=== PATIENT | male | born 1970 | race Two or more races ===

== ENCOUNTER 2023-12-18 18:37 | Emergency (ER) | payer MEDICAID, OTHER ==
[~2023-12-18] VITALS: Ht 172.7 cm; Wt 100.2 kg
[2023-12-18] MEDS ORDERED: AUG875T PO (20:29)
[2023-12-18] MEDS ORDERED: IBUP-1456 PO (20:29)
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
[2023-12-18] MEDS: TETANUS-DIPTH-ACEL PERTUSSIS 0.5ML SYR Tdap IM ONE (20:57)
[2023-12-18 21:05] VITALS: BP 126/78; PULSE 94; RESP 18; TEMP 98.4; O2SAT 96
== END 2023-12-18 21:06 | disposition home or self-care (01) ==
LOC: ER 18:37
DX: S61.254A Open bite of right ring finger without damage to nail, initial encounter (principal); Y04.1XXA Assault by human bite, initial encounter; Y93.89 Activity, other specified; Y92.89 Other specified places as the place of occurrence of the external cause; Y99.8 Other external cause status
CPT/HCPCS: 90471; 90715

== ENCOUNTER 2023-12-26 05:33 | Inpatient (IN) | payer MEDICAID ==
[~2023-12-26] VITALS: Ht 172.7 cm; Wt 101.1 kg
[~2023-12-26 05:33] MED LIST: AUG875T PO; IBUP-1456 PO
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
[2023-12-26 06:28] LABS: Basophils # (auto) 0 10 ^3/uL (0-0.2); Basophils % (auto) 0.2 % (0.0-2.0); Eosinophils # (auto) 0 10 ^3/uL (0-0.8); Eosinophils % (auto) 0.3 % (0.0-7.0); Hematocrit 45.9 % (41.0-53.0); Hemoglobin 15.5 g/dL (13.5-17.5); Lymphocytes # (auto) 1.2 10 ^3/uL (0.4-5.4); Lymphocytes % (auto) 10.6 % (10.0-50.0); Mean Corpuscular Hemoglobin 28.3 pg (28.0-32.0); Mean Corpuscular Hgb Conc. 33.7 g/dL (32.0-36.0); Monocytes # (auto) 0.3 10 ^3/uL (0-1.3); Monocytes % (auto) 2.5 % (0.0-12.0); Neutrophils # (auto) 9.5 10 ^3/uL (1.6-8.6); Neutrophils % (auto) 86.4 % (37.0-80.0); Platelet Count (auto) 275 10^3/uL (140-450); Red Blood Cells 5.46 10^6/uL (4.5-5.90); Red Cell Distribution Width 13.3 % (11.8-14.3); White Blood Cell 11.1 10^3/uL (4.4-10.8)
[2023-12-26] MEDS: ONDANSETRON HCL 4 MG/2 ML VIAL IV ONE (06:40)
[2023-12-26] MEDS: MORPHINE SULFATE 4 MG/ML SYR/VIAL IV ONE ×2 (06:40→09:30)
[2023-12-26 06:50] LABS: Alanine Aminotransferase 27 U/L (7-40); Albumin 4.8 g/dL (3.2-4.8); Alkaline Phosphatase 83 U/L (46-116); Anion Gap 6 (5-15); Aspartate Aminotransferase 11 U/L (13-40); BUN/Creatinine Ratio 12.5 (10.0-20.0); Bilirubin, Total 0.9 mg/dL (0.2-1.0); Blood Urea Nitrogen 14 mg/dL (9-23); Calcium 10.3 mg/dL (8.7-10.4); Carbon Dioxide 30 mmol/L (20-31); Chloride 105 mmol/L (98-107); Glucose 178 mg/dL (74-106); Lipase 60 U/L (12-53); Potassium 3.6 mmol/L (3.5-5.1); Sodium 141 mmol/L (136-145); Total Protein 7.6 g/dL (5.7-8.2)
[2023-12-26] MEDS: SODIUM CHLORIDE 0.9% 500 ML IVB ONE (06:55)
--- NOTE | 2023-12-26 07:14 | DVH ---
CLINICAL INFORMATION: 53 years old, Male; right sided pain. TECHNIQUE: Axial CT images of the abdomen and pelvis were obtained without IV contrast. Coronal and sagittal reformatted images were obtained, reviewed, and stored. Evaluation of the parenchymal organs is limited without IV contrast. Evaluation of the bowel and mesentery is limited without oral contra st. All CT scans at this medical facility are performed using dose modulation techniques as appropria te to a performed exam including the following: Automated exposure control was utilized; adjustment o f the MA and/or KV according to patient size; and use of iterative reconstruction technique. CTDIvol = 23.13 mGy DLP = 1546.95 mGy-cm COMPARISON: None FINDINGS: Lung bases: Atelectasis in the lung bases. Respiratory motion artifact limits evaluation. Liver: Grossly unremarkable in its noncontrast enhanced appearance. No abnormal density or focal les ion identified. Biliary: Densities within the gallbladder, likely sludge and/ or gallstones. Gallbladder is distended , measuring up to 12.5 x 5.0 cm. Spleen: Unremarkable. Pancreas: Grossly unremarkable in its noncontrast enhanced appearance. Adrenal glands: Unremarkable. No mass. Kidneys: No hydronephrosis. No renal or ureteral calculi. Aorta/Vascular: Scattered atherosclerotic calcification. No abdominal aortic aneurysm. Retroperitoneum: No mass or lymphadenopathy. Bowel/mesentery: Nonspecific nondilated fluid-filled small bowel loops. No small bowel obstruction. A ppendix is visualized and appears unremarkable. Scattered small colonic diverticula without adjacent inflammatory changes to suggest diverticulitis. Pelvic organs: Enlarged prostate with mild impression on the bladder base. Bladder: Unremarkable. No mass. Abdominal wall: Small fat containing left inguinal hernia. Bones: No acute fracture or suspicious intraosseous lesion. IMPRESSION: 1. Nonspecific nondilated fluid-filled small bowel loops. Findings may be seen with ileus or enterit is in the appropriate clinical setting. No small bowel obstruction. 2. Distended gallbladder with likely sludge and/ or gallstones. Correlate with clinical findings. U ltrasound could be obtained to further evaluate if clinically indicated. 3. Small left indirect fat containing inguinal hernia. 4. Additional nonacute findings as detailed above.
[2023-12-26 07:26] VITALS: PULSE 59; RESP 14; O2SAT 96
[2023-12-26 07:52] LABS: Urine Bacteria None Seen /hpf (None Seen)
[2023-12-26 08:00] LABS: Urine Blood Negative /uL (Negative); Urine Clarity Clear (Clear); Urine Color Yellow (Yellow); Urine Mucus FEW (None Seen); Urine Protein, UAD 1+ (Negative); Urine Specific Gravity 1.026 (1.001-1.035); Urine Urobilinogen Normal (Negative); Urine WBC 1 /hpf (0 - 3); Urine pH 6.5 (5.0-9.0)
[2023-12-26] MEDS: PROCHLORPERAZINE EDISYLATE 5 MG/ML 2ML VIAL IV ONE (09:27)
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
[2023-12-26] MEDS ORDERED: SODIUM CHLORIDE 0.9% 1,000 ML IV SCH (10:15)
[2023-12-26] MEDS ORDERED: ACETAMINOPHEN 325 MG TAB PO PRN ×2 (10:15→10:30)
[2023-12-26] MEDS ORDERED: MORPHINE SULFATE INJ 2 MG/ml SYRG IV PRN (10:15)
[2023-12-26] MEDS ORDERED: ONDANSETRON HCL 4 MG/2 ML VIAL IV PRN (10:15)
[2023-12-26] MEDS ORDERED: HYDROcodone-ACET 5/325MG TAB PO PRN ×2 (10:15→10:30)
[2023-12-26] MEDS: SODIUM CHLORIDE 0.9% 1,000 ML IV SCH (10:30)
--- NOTE | 2023-12-26 10:51 | DVH ---
INDICATION: Right upper quadrant pain, rule out cholecystitis TECHNIQUE: Multiple real-time sonographic images were obtained of the right upper quadrant. COMPARISON: None FINDINGS: The liver demonstrates heterogeneous echotexture without focal mass lesions. The liver bhavna sures 15.8 cm. There is no intrahepatic or extrahepatic ductal dilatation. The common duct measures 0.6 cm. Cholelithiasis is noted. The gallbladder wall measures 0.2 cm and is within normal limits. The right kidney measures 10.9 cm. The right kidney is normal in contour, size, and shape. The echo genicity is normal. There is no hydronephrosis. The pancreas is not well visualized due to overlying bowel gas. IMPRESSION: 1. Cholelithiasis without evidence of cholecystitis 2. Hepatic steatosis.
[2023-12-26] MEDS: ONDANSETRON HCL 4 MG/2 ML VIAL IV PRN (17:06)
[2023-12-26] MEDS: MORPHINE SULFATE INJ 2 MG/ml SYRG IV PRN (17:07)
[2023-12-26 18:19] VITALS: RESP 16
[2023-12-26 18:23] VITALS: BP 145/89; PULSE 67; RESP 16; TEMP 98.5; O2SAT 94
[2023-12-26 21:00] VITALS: BP 133/72; PULSE 61; RESP 19; TEMP 98.4; O2SAT 96
[2023-12-27 01:00] VITALS: BP 138/74; PULSE 63; RESP 19; TEMP 98.6; O2SAT 93
[2023-12-27 05:00] VITALS: BP 151/83; PULSE 68; RESP 20; TEMP 98.3; O2SAT 93
[2023-12-27 05:47] LABS: Basophils # (auto) 0 10 ^3/uL (0-0.2); Basophils % (auto) 0.3 % (0.0-2.0); Eosinophils # (auto) 0.1 10 ^3/uL (0-0.8); Eosinophils % (auto) 1.1 % (0.0-7.0); Hematocrit 41.6 % (41.0-53.0); Hemoglobin 14.4 g/dL (13.5-17.5); Lymphocytes # (auto) 1.3 10 ^3/uL (0.4-5.4); Lymphocytes % (auto) 13.2 % (10.0-50.0); Mean Corpuscular Hemoglobin 29.2 pg (28.0-32.0); Mean Corpuscular Hgb Conc. 34.6 g/dL (32.0-36.0); Mean Corpuscular Volume 84.5 fL (80.0-100.0); Monocytes # (auto) 0.7 10 ^3/uL (0-1.3); Monocytes % (auto) 7.2 % (0.0-12.0); Neutrophils # (auto) 7.9 10 ^3/uL (1.6-8.6); Neutrophils % (auto) 78.2 % (37.0-80.0); Platelet Count (auto) 235 10^3/uL (140-450); Red Blood Cells 4.92 10^6/uL (4.5-5.90); Red Cell Distribution Width 13.1 % (11.8-14.3); White Blood Cell 10.1 10^3/uL (4.4-10.8)
[2023-12-27 06:08] LABS: Alanine Aminotransferase 22 U/L (7-40); Alkaline Phosphatase 72 U/L (46-116); Anion Gap 9 (5-15); BUN/Creatinine Ratio 10.2 (10.0-20.0); Blood Urea Nitrogen 9 mg/dL (9-23); Carbon Dioxide 25 mmol/L (20-31); Chloride 108 mmol/L (98-107); Glucose 124 mg/dL (74-106); Potassium 3.7 mmol/L (3.5-5.1); Sodium 142 mmol/L (136-145)
[2023-12-27 06:09] LABS: Aspartate Aminotransferase 9 U/L (13-40); Bilirubin, Total 1.7 mg/dL (0.2-1.0); Total Protein 6.6 g/dL (5.7-8.2)
[2023-12-27 09:03] VITALS: BP_SYST 150; BP_SYST 157; BP_DIAS 103; BP_DIAS 78; PULSE 94; PULSE 95; RESP 17; RESP 19; TEMP 99.1; O2SAT 93; O2SAT 95
--- NOTE | 2023-12-27 11:05 | DVHPN2 ---
Eyes: No Pain, No Vision change, No Conjunctivae inflammation, No Eyelid inflammation, No Other, No Redness ENT: No Ear pain, No Ear discharge, No Nose pain, No Nose discharge, No Nose congestion, No Mouth pain, No Mouth swelling, No Throat pain, No Throat swelling, No Other Cardiovascular: No Chest Pain, No Palpitations, No Orthopnea, No Paroxysmal Noc. Dyspnea, No Edema, No Lt Headedness, No Other Respiratory: No Cough, No Dry, No Shortness of breath, No SOB with excertion, No Wheezing, No Hemoptysis, No Pleuritic Pain, No Sputum, No Other Gastrointestinal: Nausea, Vomiting, Abdominal Pain; No Diarrhea, No Constipation, No Melena, No Hematochezia, No Other Genitourinary: No Dysuria, No Frequency, No Incontinence, No Hematuria, No Retention, No Other Musculoskeletal: No other, No neck pain, No shoulder pain, No arm pain, No back pain, No hand pain, No leg pain, No foot pain Skin: No Rash, No Lesions, No Jaundice, No Bruising, No Other Objective Vitals Vital Signs Date Time Temp Pulse Resp B/P (MAP) Pulse Ox O2 Delivery O2 Flow Rate FiO2 12/27/23 09:03 99.1 94 17 157/78 (104) 95 99.1 12/27/23 08:00 Room Air* 0 21 Intake/Output Intake and Output 12/27/23 07:00 Intake Total 500 ml Balance 500 ml Intake Oral 0 ml IV Total 500 ml # Voids 2 # Bowel Movements 1 Medications Current Medications Medications Dose Ordered Sig/[place] Route Start Time Stop Time Status Last Admin Dose Admin Ondansetron HCl 4 mg Q4HP PRN IV 12/26/23 10:30 12/26/23 17:06 4 MG Morphine Sulfate 2 mg Q4HPRN PRN IV 12/26/23 10:30 12/27/23 08:50 2 MG Sodium Chloride 1,000 ml @ 100 mls/hr Q10H IV 12/26/23 10:30 12/27/23 00:58 100 MLS/HR Acetaminophen/ Hydrocodone Bitart 1 tab Q4HP PRN PO 12/26/23 10:30 Acetaminophen 650 mg Q6HP PRN PO 12/26/23 10:30 Laboratory Results Laboratory Tests 12/27/23 05:14 Chemistry Test 12/27/23 05:14 Albumin 4.0 g/dL (3.2-4.8) Calcium Level 9.0 mg/dL (8.7-10.4) Total Protein 6.6 g/dL (5.7-8.2) LFT Test 12/27/23 05:14 Alanine Aminotransferase (ALT) 22 U/L (7-40) Alkaline Phosphatase 72 U/L (46-116) Aspartate Amino Transferase (AST) 9 U/L (13-40) L Total Bilirubin 1.7 mg/dL (0.2-1.0) H Urinalysis Test 12/26/23 07:51 Urine Color Yellow (Yellow) Urine Clarity Clear (Clear) Urine pH 6.5 (5.0-9.0) Urine Specific [place] 1.026 (1.001-1.035) Urine Protein 1+ (Negative) H Urine Ketones Negative (Negative) Urine Blood Negative /uL (Negative) Urine Nitrite Negative (Negative) Urine Bilirubin Negative (Negative) Urine Urobilinogen Normal mg/dL (Negative) Urine Leukocyte Esterase Negative /uL (Negative) Urine RBC <1 /hpf (0 - 3) Urine WBC 1 /hpf (0 - 3) Urine Squamous Epithelial Cells None seen /hpf (<5) Urine Bacteria None seen /hpf (None Seen) Urine Mucus Few (None Seen) Urine Glucose 1+ mg/dL (Normal) ORQUIDEA HARLEY MD Dec 27, 2023 11:05
--- NOTE | 2023-12-27 11:48 | DVHDS2 ---
Discharge Summary Date of Admission Dec 26, 2023 at 10:06 Date of Discharge: Dec 27, 2023 Admitting Diagnosis # acute abdominal pain # rule out cholecystitis # elevated lipase # nausea and vomiting Labs/Diagnostic Data: Laboratory Results Test 12/27/23 05:14 12/26/23 07:51 12/26/23 06:13 White Blood Count 10.1 10^3/uL (4.4-10.8) Red Blood Count 4.92 10^6/uL (4.5-5.90) Hemoglobin 14.4 g/dL (13.5-17.5) Hematocrit 41.6 % (41.0-53.0) Mean Corpuscular Volume 84.5 fL (80.0-100.0) Mean Corpuscular Hemoglobin 29.2 pg (28.0-32.0) Mean Corpuscular Hemoglobin Concent 34.6 g/dL (32.0-36.0) Red Cell Distribution Width 13.1 % (11.8-14.3) Platelet Count 235 10^3/uL (140-450) Mean Platelet Volume 9.2 fL (6.9-10.8) Neutrophils (%) (Auto) 78.2 % (37.0-80.0) Lymphocytes (%) (Auto) 13.2 % (10.0-50.0) Monocytes (%) (Auto) 7.2 % (0.0-12.0) Eosinophils (%) (Auto) 1.1 % (0.0-7.0) Basophils (%) (Auto) 0.3 % (0.0-2.0) Neutrophils # (Auto) 7.9 10 ^3/uL (1.6-8.6) Lymphocytes # (Auto) 1.3 10 ^3/uL (0.4-5.4) Monocytes # (Auto) 0.7 10 ^3/uL (0-1.3) Eosinophils # (Auto) 0.1 10 ^3/uL (0-0.8) Basophils # (Auto) 0 10 ^3/uL (0-0.2) Nucleated Red Blood Cells 0.0 % Sodium Level 142 mmol/L (136-145) Potassium Level 3.7 mmol/L (3.5-5.1) Chloride Level 108 mmol/L (98-107) Carbon Dioxide Level 25 mmol/L (20-31) Anion Gap 9 (5-15) Blood Urea Nitrogen 9 mg/dL (9-23) Creatinine 0.88 mg/dL (0.700-1.30) Glomerular Filtration Rate Calc 103 mL/min (>90) BUN/Creatinine Ratio 10.2 (10.0-20.0) Serum Glucose 124 mg/dL (74-106) Calcium Level 9.0 mg/dL (8.7-10.4) Total Bilirubin 1.7 mg/dL (0.2-1.0) Aspartate Amino Transferase (AST) 9 U/L (13-40) Alanine Aminotransferase (ALT) 22 U/L (7-40) Alkaline Phosphatase 72 U/L (46-116) Total Protein 6.6 g/dL (5.7-8.2) Albumin 4.0 g/dL (3.2-4.8) Urine Color Yellow (Yellow) Urine Clarity Clear (Clear) Urine pH 6.5 (5.0-9.0) Urine Specific [place] 1.026 (1.001-1.035) Urine Protein 1+ (Negative) Urine Ketones Negative (Negative) Urine Blood Negative /uL (Negative) Urine Nitrite Negative (Negative) Urine Bilirubin Negative (Negative) Urine Urobilinogen Normal mg/dL (Negative) Urine Leukocyte Esterase Negative /uL (Negative) Urine RBC <1 /hpf (0 - 3) Urine WBC 1 /hpf (0 - 3) Urine Squamous Epithelial Cells None seen /hpf (<5) Urine Bacteria None seen /hpf (None Seen) Urine Mucus Few (None Seen) Urine Glucose 1+ mg/dL (Normal) Lipase 60 U/L (12-53) Other Laboratory Tests 12/27/23 05:14 Brief Hx & Hospital Course: This is a 53 years old male with past medical history of abdominal surgery came to emergency department because of abdominal pain. The patient reported of right upper quadrant abdominal pain associated with nausea and vomiting. No fever, chill, shortness for breath, chest pain, diarrhea or constipation. The patient was admitted. CT scan abdomen and pelvis showed: Nonspecific nondilated fluid-filled small bowel loops. Findings may be seen with ileus or enteritis in the appropriate clinical setting. No small bowel obstruction. Distended gallbladder with likely sludge and/ or gallstones. Correlate with clinical findings. Ultrasound could be obtained to further evaluate if clinically indicated. Small left indirect fat containing inguinal hernia. The patient ultrasound showed cholelithiasis but no acute cholecystitis. No common bile duct dilation. The patient also had mild elevation of lipase but tolerated food well. So I am going to discharge the patient home today. Advised the patient to follow up with primary care physician 1-2 weeks. Advised the patient if he continuing to have pain then have an outpatient surgery evaluation. Activity as tolerated. Diet per home diet. Physical exam: HEENT: Normocephalic atraumatic pupils equal react to light and accommodation. Extraocular muscles intact, conjunctiva pink, oropharynx moist, no thrush, no exudate. Lymphatic: No lymphadenopathy Cardiovascular exam: S1, S2 was heard. No murmurs, rubs, gallops Lung: Clear on auscultation bilaterally, no wheeze, rale, rhonchi. GI: Abdominal soft, nondistended, nontenderness, positive bowel sounds. Extremity: No crepitus, cyanosis, edema. Pedal pulses present bilateral. Full range of motion. Skin: Normal turgor, no rash. Psych: Alert, oriented x3. Neurology: No focal deficits, cranial nerve II to XII grossly intact. Condition at Discharge: Stable Final Diagnosis/Problems List # acute abdominal pain # cholelithiasis without cholecystitis # elevated lipase # nausea and vomiting Discharge Disposition: Home Discharge Instruct/Medications Diet: Regular Activity: No Restrictions, As Tolerated Discharge Statement: "Patient was advised to return to the ER or call 911 if any headaches, dizziness, shortness of breath, chest pain, abdominal pain, bleeding, fevers, or worsening of medical condition. Patient was counseled about treatment plan, medications, possible side effects, patientverbalized understanding. All questions were answered to the best of my ability. This discharge took greater then 30 minutes in planning, reviewing documentation, counseling the patient, and discussing with other team members." ASSESSMENT ASSESSMENT Assessment Date of Service: Dec 27, 2023 Billing Provider: ORQUIDEA SOLORZANO MD Common Visit Codes: [id number] DISCH DAY >30min ORQUIDEA SOLORZANO MD Dec 27, 2023 11:48
[2023-12-27] MEDS ORDERED: LEVO500T91 PO (11:58)
[2023-12-27] MEDS ORDERED: HYDR-4902 PO (11:58)
[2023-12-27] MEDS ORDERED: ZOFR4T PO (11:58)
[2023-12-27 12:42] VITALS: BP 152/82; PULSE 68; RESP 18; TEMP 98.8; O2SAT 96
[2023-12-27 16:50] VITALS: BP 152/82; PULSE 68; RESP 18; TEMP 98.8; O2SAT 96
[2023-12-27 17:06] VITALS: BP 122/57; PULSE 71; RESP 16; TEMP 99.6; O2SAT 95
== END 2023-12-27 19:03 | disposition home or self-care (01) ==
LOC: ER 05:33 → OVERFLOW 10:06 → ER 10:07 → CENTRAL 17:54
PROVIDERS: ADMIT Registered Nurse; ATTEND Internal Medicine
DX: K80.20 Calculus of gallbladder without cholecystitis without obstruction (principal); E66.9 Obesity, unspecified; Z83.3 Family history of diabetes mellitus; Z68.33 Body mass index [BMI] 33.0-33.9, adult
CPT/HCPCS: 36415; 74176; 76705; 80053; 81001; 83690; 85025; 87081; G0378; J2405